=== PATIENT | female | born 1955 | race African-American/Black ===

== ENCOUNTER 2020-11-30 03:07 | Emergency (ER) | payer OTHER ==
[~2020-11-30] VITALS: Ht 170.2 cm; Wt 72.0 kg
[~2020-11-30 03:07] MED LIST: METF-414 MT
[2020-11-30 05:38] LABS: BASOPHILS % 0.8 % (0.0-2.0); EOSINOPHILS % 0.8 % (0.0-5.0); HEMATOCRIT. 38.6 % (36.0-48.0); HEMOGLOBIN. 12.9 g/dL (12.0-16.0); LYMPHOCYTES % 21.3 % (20.0-50.0); MEAN CORPUSCULAR HEMOGLOBIN 28.9 pg (28.0-32.0); MEAN CORPUSCULAR VOLUME 86.3 fL (81.0-99.0); MEAN PLATELET VOLUME 8.5 fl (7.4-10.4); MONOCYTES % 6.1 % (2.0-8.0); PLATELET 301 x1000/uL (130-400); RED BLOOD CELL COUNT 4.47 mill/uL (4.2-5.4); RED CELL DISTRIBUTION WIDTH 13.9 % (11.6-14.6)
[2020-11-30 05:46] LABS: CHLORIDE 113 mEq/L (98-107)
[2020-11-30] MEDS ORDERED: BACL-141 MT (05:57)
[2020-11-30] MEDS ORDERED: IBUP-2028 MT (05:57)
[2020-11-30] MEDS ORDERED: AZIT250T12 MT (06:03)
[2020-11-30 06:35] VITALS: BP 131/70
== END 2020-11-30 06:36 | disposition home or self-care (01) ==
LOC: ER 03:07
DX: J18.9 Pneumonia, unspecified organism (principal); M54.6 Pain in thoracic spine; F17.200 Nicotine dependence, unspecified, uncomplicated; E11.9 Type 2 diabetes mellitus without complications; Z98.890 Other specified postprocedural states; Z79.899 Other long term (current) drug therapy
CPT/HCPCS: 36415; 71045; 74176; 80053; 83880; 84484; 85025; 85379; 93005; 99285

== ENCOUNTER 2023-10-04 21:03 | Emergency (ER) | payer OTHER ==
[~2023-10-04] VITALS: Ht 162.6 cm; Wt 50.0 kg
[~2023-10-04 21:03] MED LIST changes: +AZIT250T12 MT; +BACL-141 MT; +IBUP-2028 MT
[2023-10-04 21:18] VITALS: TEMP 100.8; O2SAT 97
[2023-10-04] MEDS: ACETAMINOPHEN 325MG TABLET PO ONE (22:00)
[2023-10-04] MEDS: SODIUM CHLORIDE 0.9% 1,000 ML IV ONE (22:30)
[2023-10-04] MEDS: PIPERACILLIN/TAZO 3.375G/50ML 50 ML IV STA (23:33)
[2023-10-04] MEDS: VANCOMYCIN 1G PREMIX 200 ML IV STA (23:33)
[2023-10-05 01:31] LABS: EOSINOPHILS % 0.1 % (0.0-5.0); HEMATOCRIT. 36.6 % (36.0-48.0); HEMOGLOBIN. 11.8 g/dL (12.0-16.0); LYMPHOCYTES % 20.8 % (20.0-50.0); MEAN CORPUSCULAR HEMOGLOBIN 26.5 pg (28.0-32.0); MEAN CORPUSCULAR HGB CONC 32.4 g/dL (31.0-37.0); MEAN PLATELET VOLUME 8.2 fl (7.4-10.4); MONOCYTES % 5.7 % (2.0-8.0); NEUTROPHILS % 72.4 % (40.0-76.0); PLATELET 278 x1000/uL (130-400); RED BLOOD CELL COUNT 4.46 mill/uL (4.2-5.4); RED CELL DISTRIBUTION WIDTH 16.8 % (11.6-14.6); WHITE BLOOD COUNT 5.7 x1000/uL (4.5-11.0)
[2023-10-05 01:41] LABS: INR 1.2; PROTHROMBIN TIME 13.1 sec (9.6-11.0)
[2023-10-05 01:44] LABS: CHLORIDE 104 mEq/L (98-107); POTASSIUM 3.7 mEq/L (3.5-5.1); SODIUM 139 mEq/L (136-145)
[2023-10-05 01:45] LABS: CALCIUM 8.5 mg/dL (8.7-10.4); CARBON DIOXIDE 28 mEq/L (21-32)
[2023-10-05 01:50] LABS: CREATININE 0.4 mg/dL (0.6-1.0); GLUCOSE 82 mg/dL (70-105); UREA NITROGEN BLOOD 11 mg/dL (9-23)
[2023-10-05 01:51] LABS: TROPONIN I HIGH SENSITIVITY 29 ng/L (3.0-34)
[2023-10-05 01:52] LABS: ALANINE AMINOTRANSFERASE 23 IU/L (10-49); ALBUMIN 3.9 g/dL (3.2-4.8); ASPARTATE AMINOTRANSFERASE 66 IU/L (<34); BILIRUBIN TOTAL 0.4 mg/dL (0.1-1.0); PROTEIN TOTAL 7.5 g/dL (6.0-8.3)
[2023-10-05] MEDS: METHYLPREDNISOLONE SOD SUCC 125MG/2ML (ACT-O-VIAL) IV STA (02:06)
[2023-10-05] MEDS: IPRATROPIUM BROMIDE (0.02%) 0.5MG/2.5ML NEB HHN STA (02:06)
[2023-10-05] MEDS: ALBUTEROL (0.083%) 2.5MG/3ML NEB HHN STA (02:06)
[2023-10-05 03:28] LABS: TROPONIN I HIGH SENSITIVITY 30 ng/L (3.0-34)
[2023-10-05 05:00] VITALS: BP 110/73; PULSE 112; RESP 18
== END 2023-10-05 05:05 | disposition short-term general hospital (02) ==
LOC: ER 21:03 → CANBEDREQ 10-06 20:55
DX: R06.03 Acute respiratory distress (principal); R50.9 Fever, unspecified; J44.9 Chronic obstructive pulmonary disease, unspecified; E11.9 Type 2 diabetes mellitus without complications; Z20.822 Contact with and (suspected) exposure to COVID-19
CPT/HCPCS: 99285; 74176; 96360; 71045; 36415; 93005; 87426; 80053; 83880; 83605; 85025; 85610; 87040; 84484; J7030